=== PATIENT | female | born 1985 | race Caucasian/White ===

== ENCOUNTER → 2024-03-01 10:53 | Outpatient (REF) | payer BC, SELFPAY | LOC: WDC 10:53 | PROVIDERS: ATTENDING PHYSICIAN Nurse Practitioner Adult Health; FAMILY PHYSICIAN Internal Medicine | DX: R92.2 Inconclusive mammogram (principal) | CPT/HCPCS: 76641 ==

== ENCOUNTER → 2024-05-22 10:47 | Outpatient (REF) | payer BC, SELFPAY | LOC: HWRAD 10:47 | PROVIDERS: ATTENDING PHYSICIAN Otolaryngology; FAMILY PHYSICIAN Internal Medicine | DX: J01.01 Acute recurrent maxillary sinusitis (principal) | CPT/HCPCS: 70486 ==

== ENCOUNTER → 2024-09-11 10:00 | Outpatient (REF) | payer BC, SELFPAY | LOC: WDC 10:00 | PROVIDERS: ATTENDING PHYSICIAN Hospitalist | DX: R22.31 Localized swelling, mass and lump, right upper limb (principal); N63.31 Unspecified lump in axillary tail of the right breast | CPT/HCPCS: 76642; 77062; 77066 ==